=== PATIENT | male | born 1945 | race Caucasian/White ===

== ENCOUNTER 2019-06-25 07:03 | Outpatient (CLI) | payer MEDICARE ==
[2019-06-25 16:58] LABS: Hemoglobin 15.4 g/dL (14.0-18.0); Mean Corpuscular HGB CONC 34.6 g/dL (32.0-36.0); Mean Corpuscular Hemoglobin 31.8 pg (27.0-31.0); Mean Platelet Volume 7.9 fL (7.4-10.4); Platelet Count 162 thou/uL (130-400); RBC Distribution Width 12.5 % (11.5-14.5); Red Blood Cell (RBC) Count 4.84 mill/uL (4.70-6.10); White Blood Cell (WBC) Count 7.3 thou/uL (4.8-10.8)
[2019-06-25 17:20] LABS: Anion Gap 12 mmol/L (10-20); BUN (Urea Nitrogen) 19 mg/dL (8.4-25.7); Calc. Creatinine Clearance 0 mL/min (70-130); Carbon Dioxide 23 mmol/L (23-31); Chloride 107 mmol/L (98-107); Estimated GFR-MDRD 41; Glucose 100 mg/dL (83-110); Potassium 3.9 mmol/L (3.5-5.1); Sodium 138 mmol/L (136-145)
== END 2019-06-25 07:04 | disposition home or self-care (01) ==
LOC: LABBT 07:03
PROVIDERS: ATTEND Thoracic Surgery (Cardiothoracic Vascular Surgery)
DX: Z01.818 Encounter for other preprocedural examination (principal); I25.10 Atherosclerotic heart disease of native coronary artery without angina pectoris
CPT/HCPCS: 80048; 85027

== ENCOUNTER 2019-06-25 17:00 | Inpatient (IN) | payer MEDICARE ==
[2019-06-26] MEDS ORDERED: Fentanyl 100 MCG/2 ML VIAL ONE (06:31)
[2019-06-26] MEDS ORDERED: Midazolam HCl 5 mg/5 ml Vial ONE (06:31)
[2019-06-26] MEDS ORDERED: Midazolam HCl 2 mg/2 ml Vial ONE (06:31)
[2019-06-26] MEDS ORDERED: Dexmedetomidine 200 MCG/2 ML VIAL ONE (06:31)
[2019-06-26] MEDS ORDERED: Vecuronium 10 MG VIAL ONE ×2 (06:31→17:45)
[2019-06-26] MEDS ORDERED: Albumin 5% 500 ML ONE (06:32)
[2019-06-26] MEDS ORDERED: Heparin 10,000 UNITS/1 ML VIAL 30,000 UNITS in Sodium Chloride 0.9% 1,000 ML FS SCH (06:45)
[2019-06-26] MEDS ORDERED: hydrALAZINE 20 MG/ML VIAL SLOW IVP PRN (11:48)
[2019-06-26] MEDS ORDERED: Bisacodyl 10 MG SUPP PR PRN (11:48)
[2019-06-26] MEDS ORDERED: Promethazine HCl 25 MG/ML VIAL IM PRN (11:48)
[2019-06-26] MEDS ORDERED: Post-Op Insulin Drip Protocol IVPB ONE (11:48)
[2019-06-26] MEDS ORDERED: Mag-Al 1200 mg/1200 mg/30 ML UDCUP PO PRN (11:48)
[2019-06-26] MEDS ORDERED: Bisacodyl 5 MG TAB PO PRN (11:48)
[2019-06-26] MEDS ORDERED: DOPamine 400 MG/D5W 250 ML 250 ML IVPB PRN (11:48)
[2019-06-26] MEDS ORDERED: Norepinephrine 8 MG/0.9% NS 250 ML IVPB PRN (11:48)
[2019-06-26] MEDS ORDERED: niCARdipine 25 MG in Sodium Chloride 0.9% 250 ML 250 ML IVPB PRN (11:48)
[2019-06-26] MEDS ORDERED: Guaifenesin DM 100-10/5 ML UDCUP PO PRN (11:48)
[2019-06-26] MEDS ORDERED: Nitroglycerin 50 MG/250 ML BOT 250 ML IVPB PRN (11:48)
[2019-06-26] MEDS ORDERED: Hetastarch 6% 500 ML 500 ML IVPB PRN (11:48)
[2019-06-26] MEDS ORDERED: Magnesium 2 GM/50 ML 2 GM in Premix Bag 1 BAG IVPB SCH (11:48)
[2019-06-26] MEDS ORDERED: Morphine 2 MG/ML SYRINGE SLOW IVP PRN (11:48)
[2019-06-26] MEDS ORDERED: Potassium Chloride 20 MEQ/100 ML PREMIX BAG IVPB PRN (11:48)
[2019-06-26] MEDS ORDERED: Fentanyl 100 MCG/2 ML VIAL SLOW IVP PRN (11:48)
[2019-06-26] MEDS ORDERED: Dextrose 50% Abboject 50 ML SYRINGE SLOW IVP PRN (11:58)
[2019-06-26] MEDS ORDERED: HUMULIN R 100 UNITS in Sodium Chloride 0.9% 100 ML IVPB SCH (11:58)
[2019-06-26] MEDS ORDERED: Dextrose 5% in Water 1,000 ML IV PRN (11:58)
[2019-06-26] MEDS: Lactated Ringer's 1,000 ML IV SCH ×2 (12:00→23:57)
[2019-06-26 12:23] LABS: INR-International Normal Ratio 1.3; PTT 35.4 SEC (22.9-36.1); Prothrombin Time 16.5 SEC (12.0-14.7)
--- NOTE | 2019-06-26 12:26 | RAD ---
SINGLE VIEW CHEST: Date: 06/26/19 COMPARISON: None. HISTORY: Status post open heart surgery. FINDINGS: Single view of the chest shows an enlarged cardiomediastinal silhouette. The patient is status post C ABG. There is a right subclavian central venous catheter with its tip at the superior vena cava. A le ft-sided chest tube and mediastinal drain are seen. There is atelectasis in the left lung base. No pn eumothorax is seen. IMPRESSION: Appropriate position of lines and tubes status post sternotomy. POS: TPC
[2019-06-26] MEDS ORDERED: Insulin Regular 300 UNITS/3 ML VIAL ONE (12:29)
[2019-06-26] MEDS: Insulin Regular 300 UNITS/3 ML VIAL SC PRN ×2 (12:31→17:25)
[2019-06-26 12:34] LABS: Anion Gap 9 mmol/L (10-20); BUN (Urea Nitrogen) 21 mg/dL (8.4-25.7); Calc. Creatinine Clearance 73 mL/min (70-130); Calcium 9.1 mg/dL (7.8-10.44); Carbon Dioxide 25 mmol/L (23-31); Chloride 109 mmol/L (98-107); Estimated GFR-MDRD 47; Glucose 144 mg/dL (83-110); Potassium 4.2 mmol/L (3.5-5.1); Sodium 139 mmol/L (136-145)
[2019-06-26 12:37] LABS: #Eosinphils 0.1 thou/uL (0.0-0.7); #Monocytes 0.7 thou/uL (0.11-0.59); #Neutrophils 11.4 thou/uL (1.40-6.50); %Basophils 0.2 % (0.0-1.0); %Eosinophils 0.9 % (0.0-10.0); %Lymphocytes 7.2 % (21.0-51.0); %Neutrophils 86.7 % (42.0-75.0); Hemoglobin 13.8 g/dL (14.0-18.0); Mean Corpuscular HGB CONC 33.7 g/dL (32.0-36.0); Mean Corpuscular Hemoglobin 30.8 pg (27.0-31.0); Mean Corpuscular Volume 91.3 fL (78.0-98.0); Mean Platelet Volume 7.9 fL (7.4-10.4); Platelet Count 116 thou/uL (130-400); Platelet Morphology Comment Appears Decreased; RBC Distribution Width 12.6 % (11.5-14.5); RBC Morphology Normal; Red Blood Cell (RBC) Count 4.48 mill/uL (4.70-6.10); White Blood Cell (WBC) Count 13.1 thou/uL (4.8-10.8)
[2019-06-26] MEDS: Acetaminophen 1,000 MG in Premix Bag 1 BAG IVPB SCH ×3 (13:12→23:58)
[2019-06-26] MEDS: Ondansetron PF 4 MG/2 ML Vial IVP PRN (13:44)
[2019-06-26] MEDS: CEFAZOLIN 2 GM in Premix Bag 1 BAG IVPB SCH ×2 (14:01→21:40)
[2019-06-26] MEDS: HYDROcodone/Acetaminophen 5/325 mg Tablet PO PRN (15:23)
[2019-06-26] MEDS: Fentanyl 100 MCG/2 ML VIAL SLOW IVP PRN ×2 (17:21→20:39)
[2019-06-26 17:34] LABS: Hemoglobin 13.7 g/dL (14.0-18.0)
[2019-06-26] MEDS ORDERED: Ondansetron PF 4 MG/2 ML Vial ONE (17:45)
[2019-06-26] MEDS ORDERED: Heparin 5,000 UNITS/ML VIAL ONE (17:45)
[2019-06-26] MEDS ORDERED: Papaverine 60 MG/2 ML VIAL ONE (17:45)
[2019-06-26] MEDS ORDERED: Mannitol 12.5 GM/50 ML ONE (17:45)
[2019-06-26] MEDS ORDERED: Glycopyrrolate 0.2 MG/ML 5 ML SYRINGE ONE (17:45)
[2019-06-26] MEDS ORDERED: Aminocaproic Acid 5 GM/20 ML VIAL ONE (17:45)
[2019-06-26] MEDS ORDERED: PHENYLEPHRINE-NS 100 MCG/ML 10 ML SYRINGE ONE (17:45)
[2019-06-26] MEDS ORDERED: Calcium Chloride 1 GM/10 ML Abboject SYRINGE ONE (17:45)
[2019-06-26] MEDS ORDERED: Thrombin 5000 UNITS/5 ML VIAL ONE (17:45)
[2019-06-26] MEDS ORDERED: Magnesium 5 GM/10 ML VIAL ONE (17:45)
[2019-06-26] MEDS ORDERED: Nitroglycerin 50 MG/250 ML BOT ONE (17:45)
[2019-06-26] MEDS ORDERED: Protamine Sulfate 250 MG/25 ML VIAL ONE (17:45)
[2019-06-26] MEDS ORDERED: ePHEDrine 50 MG/ML VIAL ONE (17:45)
[2019-06-26] MEDS ORDERED: Dexamethasone 20 MG/5 ML VIAL ONE (17:45)
[2019-06-26] MEDS ORDERED: Ketorolac Tromethamine 30 MG/ML VIAL ONE (17:45)
[2019-06-26] MEDS ORDERED: Lidocaine 2% PF 100 mg/5 ml Syringe ONE (17:45)
[2019-06-26] MEDS ORDERED: Heparin 30,000 units/30 ml VIAL ONE (17:45)
[2019-06-26] MEDS ORDERED: Sodium Bicarb 50 MEQ/50 ML VIAL ONE (17:45)
[2019-06-26] MEDS ORDERED: Cardioplegic Soln 1,000 ML BAG ONE (17:45)
[2019-06-26 17:48] LABS: Potassium 4.2 mmol/L (3.5-5.1)
[2019-06-26] MEDS: Famotidine/PF 20 mg/2ml Vial SLOW IVP SCH (20:38)
[2019-06-26] MEDS: Atorvastatin Calcium 40 MG TAB PO SCH (20:40)
[2019-06-27] MEDS: HYDROcodone/Acetaminophen 5/325 mg Tablet PO PRN ×2 (04:03→13:27)
[2019-06-27 05:03] LABS: #Lymphocytes 0.9 thou/uL (1.20-3.40); #Monocytes 0.9 thou/uL (0.11-0.59); #Neutrophils 9.3 thou/uL (1.40-6.50); %Basophils 0.1 % (0.0-1.0); %Eosinophils 0.2 % (0.0-10.0); %Lymphocytes 8.4 % (21.0-51.0); %Monocytes 8.1 % (0.0-10.0); %Neutrophils 83.3 % (42.0-75.0); Hemoglobin 12.9 g/dL (14.0-18.0); Mean Corpuscular HGB CONC 33.8 g/dL (32.0-36.0); Mean Corpuscular Hemoglobin 31.5 pg (27.0-31.0); Mean Corpuscular Volume 93.1 fL (78.0-98.0); Mean Platelet Volume 8.8 fL (7.4-10.4); Platelet Count 110 thou/uL (130-400); RBC Distribution Width 12.6 % (11.5-14.5); White Blood Cell (WBC) Count 11.1 thou/uL (4.8-10.8)
[2019-06-27 05:19] VITALS: BMI 32.6
[2019-06-27 05:19] LABS: Anion Gap 11 mmol/L (10-20); BUN (Urea Nitrogen) 22 mg/dL (8.4-25.7); Calc. Creatinine Clearance 80 mL/min (70-130); Calcium 8.2 mg/dL (7.8-10.44); Carbon Dioxide 21 mmol/L (23-31); Chloride 109 mmol/L (98-107); Estimated GFR-MDRD 53; Glucose 119 mg/dL (83-110); Potassium 4.1 mmol/L (3.5-5.1); Sodium 137 mmol/L (136-145)
[2019-06-27] MEDS: CEFAZOLIN 2 GM in Premix Bag 1 BAG IVPB SCH (05:22)
[2019-06-27] MEDS ORDERED: Acetaminophen 325 MG TAB PO PRN (06:00)
[2019-06-27] MEDS: Ibuprofen 200 MG TAB PO SCH ×3 (07:18→18:02)
--- NOTE | 2019-06-27 08:13 | RAD ---
PORTABLE CHEST: Date: 06/27/19 HISTORY: Postop open heart surgery. COMPARISON: Prior day's study. FINDINGS: Heart size is enlarged. There are postop sternotomy changes. Right-sided subclavian line and left-barry ed chest tubes remain in place. The pulmonary vascular engorgement and parenchymal lung changes are s table as compared to the prior study. IMPRESSION: Stable exam. POS: ELIZABETH
--- NOTE | 2019-06-27 08:55 | OP ---
DATE OF PROCEDURE: 06/26/2019 PREOPERATIVE DIAGNOSIS: Coronary artery disease. PROCEDURE PERFORMED: Coronary artery bypass graft x4, ERICKSON, good quality to a 1.5 mm left anterior descending, saphenous vein, good quality to large to a 1.5 mm PDA, a 1.5 mm diagonal, left radial to a 1.5 mm obtuse marginal. [employer] C[employer]ER: Dang. ADDITIONAL FINDINGS: The patient had rather large heart, deep chest. DESCRIPTION OF PROCEDURE: After adequate anesthesia had been obtained, the patient was prepped and draped and I did a left radial artery harvest after ensuring good collateral flow while Dr. Leong did an endovascular vein harvest of the left greater saphenous vein. Simultaneously, then I performed a median sternotomy harvesting the left internal mammary artery. The patient was heparinized. Mammary divided distally and passed posterior to the thymus gland. An incision made in the pericardium to allow it to go well to the left of the midline to access the LAD, which was more lateral and posterior than normal. Aorta was cannulated and was somewhat large vessel. Right atrium was cannulated. Cardiopulmonary bypass begun. The aorta was cross clamped and after a liter of cardioplegia, the 4 distal anastomosis were completed. The cross-clamp was removed. The partial occluding clamp placed and 2 vein anastomosis were performed on the aortic root and marked with rings into the james of the diagonal vein graft was placed to the OM radial graft. The patient was weaned from cardiopulmonary bypass. Cannula was removed and aortic cannulation site secured with a 4-0 Prolene suture. Mediastinal and left pleural drains were placed following which the sternum was reapproximated with #7 interrupted wire using vancomycin paste on the sternal edges, platelet rich blood and platelet poor plasma. Subcutaneous tissue and skin were closed in layers and the patient was to be taken to the ICU in guarded condition. Job ID: [id number]
[2019-06-27] MEDS: Famotidine/PF 20 mg/2ml Vial SLOW IVP SCH ×2 (09:14→21:17)
[2019-06-27] MEDS: Aspirin 325 MG TAB PO SCH (09:14)
[2019-06-27] MEDS: Polyethylene Glycol 3350 17 GM Packet PO SCH (12:09)
[2019-06-27] MEDS: Lactated Ringer's 1,000 ML IV SCH (12:14)
[2019-06-27] MEDS ORDERED: Fentanyl 100 MCG/2 ML VIAL SLOW IVP PRN (16:56)
[2019-06-27] MEDS: Ondansetron PF 4 MG/2 ML Vial IVP PRN (17:14)
[2019-06-27] MEDS: Atorvastatin Calcium 40 MG TAB PO SCH (21:17)
[2019-06-28 04:54] LABS: Anion Gap 6 mmol/L (10-20); BUN (Urea Nitrogen) 17 mg/dL (8.4-25.7); Calc. Creatinine Clearance 75 mL/min (70-130); Calcium 7.7 mg/dL (7.8-10.44); Carbon Dioxide 28 mmol/L (23-31); Chloride 106 mmol/L (98-107); Estimated GFR-MDRD 49; Glucose 118 mg/dL (83-110); Potassium 3.2 mmol/L (3.5-5.1); Sodium 137 mmol/L (136-145)
[2019-06-28 04:56] LABS: #Eosinphils 0.2 thou/uL (0.0-0.7); #Lymphocytes 1.4 thou/uL (1.20-3.40); #Monocytes 0.9 thou/uL (0.11-0.59); #Neutrophils 6.3 thou/uL (1.40-6.50); %Basophils 0.4 % (0.0-1.0); %Eosinophils 2.3 % (0.0-10.0); %Lymphocytes 15.6 % (21.0-51.0); %Monocytes 10.3 % (0.0-10.0); %Neutrophils 71.3 % (42.0-75.0); Hemoglobin 11.9 g/dL (14.0-18.0); Mean Corpuscular HGB CONC 34.2 g/dL (32.0-36.0); Mean Corpuscular Hemoglobin 31.9 pg (27.0-31.0); Mean Corpuscular Volume 93.4 fL (78.0-98.0); Mean Platelet Volume 8.5 fL (7.4-10.4); Platelet Count 98 thou/uL (130-400); RBC Distribution Width 12.7 % (11.5-14.5); Red Blood Cell (RBC) Count 3.72 mill/uL (4.70-6.10); White Blood Cell (WBC) Count 8.9 thou/uL (4.8-10.8)
[2019-06-28] MEDS: Ibuprofen 200 MG TAB PO SCH ×4 (05:46→17:37)
[2019-06-28] MEDS ORDERED: Guaifenesin DM 100-10/5 ML UDCUP PO PRN (07:20)
[2019-06-28] MEDS ORDERED: Mineral Oil ENEMA PR PRN (07:20)
[2019-06-28] MEDS ORDERED: Bisacodyl 10 MG SUPP PR PRN (07:20)
[2019-06-28] MEDS ORDERED: Bisacodyl 5 MG TAB PO PRN (07:20)
[2019-06-28] MEDS ORDERED: Ondansetron PF 4 MG/2 ML Vial IVP PRN (07:20)
[2019-06-28] MEDS ORDERED: Nitroglycerin 0.4 MG TAB (25 Tab Bottle) SL PRN (07:20)
[2019-06-28] MEDS ORDERED: Acetaminophen 325 MG TAB PO PRN (07:20)
[2019-06-28] MEDS ORDERED: Mag-Al 1200 mg/1200 mg/30 ML UDCUP PO PRN (07:20)
[2019-06-28] MEDS: Aspirin 325 MG TAB PO SCH (08:36)
[2019-06-28] MEDS: Famotidine 20 MG TAB PO SCH ×2 (08:36→20:15)
[2019-06-28] MEDS: Furosemide 40 MG TAB PO SCH (08:36)
[2019-06-28] MEDS: Aspirin 325 mg Enteric Coated Tablet PO SCH (08:37)
[2019-06-28] MEDS: Polyethylene Glycol 3350 17 GM Packet PO SCH (08:37)
[2019-06-28] MEDS: Potassium Chloride 10 MEQ TAB PO SCH (08:37)
--- NOTE | 2019-06-28 08:40 | RAD ---
CHEST 1 VIEW: Date: 06/28/19 INDICATION: History of open heart surgery. COMPARISON: Prior study dated 06/27/19. FINDINGS: Cardiomegaly persists. Mild pulmonary vascular congestion has improved. Right subclavian central veno us catheter is unchanged. Left-sided thoracostomy tube has been removed. No pneumothorax is evident. Post CABG change is stable. Left basilar opacity and small left pleural effusion remain. IMPRESSION: 1. Improvement in the central edema pattern seen from the prior exam. 2. Removal of left side thoracostomy tube. No pneumothorax. 3. Increasing air space opacity of left lower lobe may reflect areas of subsegmental volume loss. Re commend repeat chest radiograph with improved aeration. 4. Stable right subclavian central venous catheter. POS: BH
[2019-06-28] MEDS: HYDROcodone/Acetaminophen 5/325 mg Tablet PO PRN (20:13)
[2019-06-28] MEDS: Atorvastatin Calcium 40 MG TAB PO SCH (20:15)
[2019-06-29] MEDS: Ibuprofen 200 MG TAB PO SCH ×4 (00:19→20:01)
[2019-06-29] MEDS: Aspirin 325 mg Enteric Coated Tablet PO SCH (08:47)
[2019-06-29] MEDS: HYDROcodone/Acetaminophen 5/325 mg Tablet PO PRN ×2 (08:47→21:38)
[2019-06-29] MEDS: Furosemide 40 MG TAB PO SCH (08:48)
[2019-06-29] MEDS: Polyethylene Glycol 3350 17 GM Packet PO SCH (08:48)
[2019-06-29] MEDS: Famotidine 20 MG TAB PO SCH ×2 (08:48→20:26)
[2019-06-29] MEDS: Potassium Chloride 10 MEQ TAB PO SCH (08:48)
[2019-06-29 18:33] LABS: Magnesium 1.7 mg/dL (1.6-2.6); Potassium 3.4 mmol/L (3.5-5.1)
[2019-06-29 18:41] LABS: ALT (SGPT) 14 U/L (8-55); AST (SGOT) 32 U/L (5-34); Albumin 3.3 g/dL (3.4-4.8); Alkaline Phosphatase 58 U/L (40-110); Bilirubin, Direct 0.4 mg/dL (0.1-0.3); Bilirubin, Total 0.7 mg/dL (0.2-1.2); Protein, Total 6.2 g/dL (5.8-8.1)
[2019-06-29] MEDS: Amiodarone 450 MG in Dextrose 5% in Water 250 ML IVPB SCH (18:52)
[2019-06-29] MEDS ORDERED: [UNRECOGNIZED DRUG - REMARK] FS SCH (19:15)
[2019-06-29] MEDS ORDERED: Potassium Chloride 20 MEQ TAB PO SCH (20:00)
[2019-06-29] MEDS: Atorvastatin Calcium 40 MG TAB PO SCH (20:26)
[2019-06-30] MEDS: Ibuprofen 200 MG TAB PO SCH ×4 (01:01→17:31)
[2019-06-30] MEDS: Amiodarone 450 MG in Dextrose 5% in Water 250 ML IVPB SCH (02:02)
[2019-06-30] MEDS ORDERED: Metolazone 5 MG TAB PO SCH (07:00)
[2019-06-30] MEDS: Potassium Chloride 10 MEQ TAB PO SCH (09:01)
[2019-06-30] MEDS: Aspirin 325 mg Enteric Coated Tablet PO SCH (09:29)
[2019-06-30] MEDS: Famotidine 20 MG TAB PO SCH ×2 (09:29→21:38)
[2019-06-30] MEDS: Polyethylene Glycol 3350 17 GM Packet PO SCH (09:29)
[2019-06-30] MEDS: Furosemide 40 MG TAB PO SCH (09:29)
[2019-06-30] MEDS: Amiodarone 200 MG TAB PO SCH ×2 (09:29→21:38)
--- NOTE | 2019-06-30 15:54 | CON ---
DATE OF CONSULTATION: 06/30/2019 REASON FOR CONSULTATION: Post-CABG atrial fibrillation. HISTORY OF PRESENT ILLNESS: Mr. Alejandre is a very pleasant 74-year-old white gentleman, who is a patient of Dr. Galeana, who comes to the hospital for a planned CABG. He underwent CABG x4 by Dr. Vazquez on 06/26/2019. He had a ERICKSON to the LAD, a vein graft to a large PDA, a vein graft to diagonal and left radial to an OM. He did well postoperatively. Yesterday, he developed atrial fibrillation with RVR. He was started on amiodarone drip. He converted back to sinus. He denies any chest pain, tightness, pressure, or chest soreness. He has been walking with PT. He has not had a bowel movement yet, but is passing gas. PAST MEDICAL HISTORY: 1. Hypertension. 2. Coronary artery disease. 3. Hyperlipidemia. 4. GERD. 5. Gout. 6. CKD, stage 3. 7. Anxiety and depression. OUTPATIENT MEDICATIONS: Include: 1. Valsartan. 2. Metoprolol succinate 25 mg a day. 3. Colchicine. 4. Atorvastatin 40 mg q.h.s. 5. CoQ10. 6. Sertraline. 7. Pantoprazole 40 mg q.p.m. 8. Allopurinol. 9. Aspirin 81 a day. ALLERGIES: NO KNOWN DRUG ALLERGIES. FAMILY HISTORY: Noncontributory. SOCIAL HISTORY: No tobacco or drugs. Social alcohol use. PAST SURGICAL HISTORY: 1. Had a knee surgery x3. 2. CABG as above. 3. Tonsillectomy as a kid. 4. Vasectomy. REVIEW OF SYSTEMS: A 12-point review of systems was done and was all negative unless stated in the history of present illness. PHYSICAL EXAMINATION: VITAL SIGNS: Temperature 97.3, pulse 73, respiratory rate 14, saturating 96% on room air, blood pressure 147/87. GENERAL: Awake, alert, and oriented x3. No distress. HEENT: Normocephalic, atraumatic. NECK: Supple. LUNGS: Clear. CARDIOVASCULAR: S1 and S2. No S3 or S4. No murmurs. ABDOMEN: Soft. Positive bowel sounds. EXTREMITIES: No edema. SKIN: Warm and dry. LABORATORY DATA: Laboratory work was reviewed. CBC with a white count of 8.9, hemoglobin 11, hematocrit of 34, and platelet count of 98. Coags were reviewed. Chemistries were reviewed. Potassium was 3.4 yesterday evening after replacement, it was 3.2 before that. Creatinine 1.3 and 1.4. GFR 49. TSH 1.3. Albumin of 3.3. ASSESSMENT AND PLAN: 1. Coronary artery disease. 2. Status post coronary artery bypass graft x4 as above. 3. Postoperative atrial fibrillation. 4. Hypertension. 5. Hyperlipidemia. PLAN: 1. We will do an amiodarone load. He has already converted to sinus after amiodarone drip. We will give him 400 b.i.d. for 10 days that is and then he will switch to 200 mg once a day. He will follow up with Dr. Galeana in about a month, at which point he should be able to come off the amiodarone. 2. We will restart some of his home blood pressure medications to try to control his blood pressure a little bit better, starting with beta-adithya and possibly tomorrow the ARB. 3. Continue to increase PT as tolerated. Thank you for letting us to participate in the care of your patient. We will follow. Job ID: [id number]
--- NOTE | 2019-06-30 17:10 | EKG ---
Test Reason : POST CABG Blood Pressure : / mmHG Vent. Rate : 054 BPM Atrial Rate : 054 BPM P-R Int : 172 ms QRS Dur : 088 ms QT Int : 502 ms P-R-T Axes : 024 -17 004 degrees QTc Int : 476 ms Sinus bradycardia Otherwise normal ECG When compared with ECG of 25-JUN-2019 16:37, (Unconfirmed) Minimal criteria for Anterior infarct are no longer Present T wave inversion now evident in Inferior leads QT has lengthened Confirmed by BRIANNE BAUMAN (2) on 06/30/2019 5:10:44 PM Referred By: JESUS Confirmed By:BRIANNE BAUMAN
[2019-06-30] MEDS: Atorvastatin Calcium 40 MG TAB PO SCH (21:38)
[2019-07-01] MEDS: Ibuprofen 200 MG TAB PO SCH ×3 (01:11→13:18)
[2019-07-01] MEDS: HYDROcodone/Acetaminophen 5/325 mg Tablet PO PRN (03:26)
[2019-07-01] MEDS ORDERED: Valsartan 80 MG TAB PO SCH (09:00)
[2019-07-01] MEDS: Aspirin 325 mg Enteric Coated Tablet PO SCH (09:32)
[2019-07-01] MEDS: Furosemide 40 MG TAB PO SCH (09:32)
[2019-07-01] MEDS: Potassium Chloride 10 MEQ TAB PO SCH (09:32)
[2019-07-01] MEDS: Famotidine 20 MG TAB PO SCH (09:32)
[2019-07-01] MEDS: Amiodarone 200 MG TAB PO SCH (09:32)
[2019-07-01] MEDS: Polyethylene Glycol 3350 17 GM Packet PO SCH (09:33)
[2019-07-01 12:41] VITALS: TEMP 97.9
[2019-07-01 12:45] VITALS: BP 143/88
--- NOTE | 2019-07-01 15:08 | DIS ---
DATE OF ADMISSION: 06/26/2019 DATE OF DISCHARGE: 07/01/2019 This is a 74-year-old gentleman admitted for coronary artery bypass grafting, which was carried out, giving a ERICKSON to an LAD, a radial to an OM, and saphenous vein graft to a diagonal and right PDA on the day of admission. He did have some transient atrial fibrillation on 06/29 in the evening, treated with amiodarone without recurrence for greater than 24 hours prior to discharge. Blood pressure was beginning to elevate and he will resume his valsartan 320 half tablet daily. Otherwise, he will resume all of his medications except for his sertraline, which I am putting on hold given his early dementia and some mild confusion in the evenings. I have gone over the discharge instructions in great detail with the patient and with the most emphasis on the need to get up and walk multiple times a day. He can take Motrin, Tylenol, or Aleve at home and I have not given him any pain medications. Job ID: [id number]
== END 2019-07-01 13:17 | disposition home or self-care (01) | DRG 236 ==
LOC: SURG A 06-26 05:46 → CCU 06-26 10:53 → 2NO 06-28 09:30
PROVIDERS: ADMIT Thoracic Surgery (Cardiothoracic Vascular Surgery); ATTEND Thoracic Surgery (Cardiothoracic Vascular Surgery)
PROC: 02100Z9 Bypass Coronary Artery, One Artery from Left Internal Mammary, Open Approach (ICD-10-PCS; principal; 2019-06-26)
PROC: 021109W Bypass Coronary Artery, Two Arteries from Aorta with Autologous Venous Tissue, Open Approach (ICD-10-PCS; 2019-06-26)
PROC: 02100AW Bypass Coronary Artery, One Artery from Aorta with Autologous Arterial Tissue, Open Approach (ICD-10-PCS; 2019-06-26)
PROC: 03BC4ZZ Excision of Left Radial Artery, Percutaneous Endoscopic Approach (ICD-10-PCS; 2019-06-26)
PROC: 06BQ4ZZ Excision of Left Saphenous Vein, Percutaneous Endoscopic Approach (ICD-10-PCS; 2019-06-26)
PROC: 5A1221Z Performance of Cardiac Output, Continuous (ICD-10-PCS; 2019-06-26)
DX: I25.118 Atherosclerotic heart disease of native coronary artery with other forms of angina pectoris (principal); I12.9 Hypertensive chronic kidney disease with stage 1 through stage 4 chronic kidney disease, or unspecified chronic kidney disease; N18.3 Chronic kidney disease, stage 3 (moderate); E78.2 Mixed hyperlipidemia; M10.9 Gout, unspecified; F41.9 Anxiety disorder, unspecified; F32.9 Major depressive disorder, single episode, unspecified; F03.90 Unspecified dementia, unspecified severity, without behavioral disturbance, psychotic disturbance, mood disturbance, and anxiety; I48.91 Unspecified atrial fibrillation; Z79.899 Other long term (current) drug therapy; Z79.82 Long term (current) use of aspirin
CPT/HCPCS: 36415; 36416; 36430; 71045; 80048; 80076; 83735; 84132; 84443; 85025; 85027; 85610; 85730; 86850; 86900; 86901; 93005; 93010; 93798; J0131; J0282; J0690; J1100; J1642; J1644; J1815; J1885; J2001; J2150; J2250; J2405; J2440; J2720; J3010; J3370; J3475; J3490; J7050; J7070; P9045; S0017; S0028

== ENCOUNTER 2021-05-17 09:45 | Outpatient (CLI) | payer MEDICARE ==
[~2021-05-17 09:45] MED LIST: Iopamidol 370 76% 100 ML VIAL ONE; Iopamidol 370 76% 50 ML VIAL FS ONE
== END 2021-05-17 09:46 | disposition home or self-care (01) ==
LOC: CT 09:45
PROVIDERS: ATTEND Specialist
DX: K80.20 Calculus of gallbladder without cholecystitis without obstruction (principal); R91.8 Other nonspecific abnormal finding of lung field; J84.10 Pulmonary fibrosis, unspecified; N28.1 Cyst of kidney, acquired; K44.9 Diaphragmatic hernia without obstruction or gangrene; K42.9 Umbilical hernia without obstruction or gangrene; I77.811 Abdominal aortic ectasia; K76.9 Liver disease, unspecified
CPT/HCPCS: 74177; 82565; Q9967

== ENCOUNTER 2021-06-10 12:04 | Outpatient (CLI) | payer MEDICARE ==
[2021-06-10 12:50] LABS: #Eosinphils 0.1 10x3/uL (0.0-0.5); #Monocytes 0.8 10x3/uL (0.0-1.1); #Neutrophils 4.7 10x3/uL (1.5-8.4); %Basophils 0.4 % (0.0-2.0); %Eosinophils 1.4 % (0.0-6.0); %Lymphocytes 19.1 % (18.0-47.0); %Neutrophils 67.8 % (40.0-75.0); Hemoglobin 14.7 g/dL (13.5-17.5); Mean Corpuscular HGB CONC 33.5 g/dL (32.0-36.0); Mean Corpuscular Hemoglobin 30.1 pg (27.0-33.0); Mean Corpuscular Volume 89.8 fl (81.2-95.1); Mean Platelet Volume 10.1 fl (7.4-10.4); Platelet Count 156 10x3/uL (150-450); RBC Distribution Width 13.3 % (11.5-14.5); Red Blood Cell (RBC) Count 4.89 10x6/uL (4.32-5.72)
[2021-06-10 13:10] LABS: ALT (SGPT) 13 U/L (8-55); AST (SGOT) 22 U/L (5-34); Albumin 3.8 g/dL (3.4-4.8); Alkaline Phosphatase 54 U/L (40-110); Anion Gap 13 mmol/L (10-20); BUN (Urea Nitrogen) 25 mg/dL (8.4-25.7); Bilirubin, Total 0.7 mg/dL (0.2-1.2); Calc. Creatinine Clearance 0 mL/min (70-130); Calcium 9.4 mg/dL (7.8-10.44); Carbon Dioxide 24 mmol/L (23-31); Chloride 107 mmol/L (98-107); Globulin 3.1 g/dL (2.4-3.5); Glucose 102 mg/dL (83-110); Potassium 4.2 mmol/L (3.5-5.1); Protein, Total 6.9 g/dL (5.8-8.1); Sodium 140 mmol/L (136-145)
[2021-06-10 23:36] LABS: SARS-CoV-2 PCR by NAA Not Detected (NotDetected)
== END 2021-06-10 12:05 | disposition home or self-care (01) ==
LOC: LABBT 12:04
PROVIDERS: ATTEND Specialist
DX: Z01.818 Encounter for other preprocedural examination (principal); K80.20 Calculus of gallbladder without cholecystitis without obstruction; K42.9 Umbilical hernia without obstruction or gangrene; Z20.822 Contact with and (suspected) exposure to COVID-19
CPT/HCPCS: 80053; 85025; 93005; U0003; U0005; 93010

== ENCOUNTER 2021-06-15 07:53 | Day surgery (SDC) | payer MEDICARE ==
[2021-06-14 11:46] VITALS: BMI 28.2
[2021-06-15] MEDS ORDERED: Ketorolac Tromethamine 30 MG/ML VIAL ONE (08:34)
[2021-06-15] MEDS ORDERED: Acetaminophen 500 MG TAB ONE (08:34)
[2021-06-15] MEDS ORDERED: Lidocaine 1% w/Epinephrine 1:100K 30 ML VIAL ONE (12:26)
[2021-06-15] MEDS ORDERED: Bupivacaine 0.25% HCL 30 ML VIAL ONE (12:26)
[2021-06-15] MEDS ORDERED: Fentanyl 100 MCG/2 ML VIAL ONE ×3 (12:35→14:59)
[2021-06-15] MEDS ORDERED: ePHEDrine 50 MG/ML VIAL ONE (12:45)
[2021-06-15] MEDS ORDERED: Ondansetron PF 4 MG/2 ML Vial ONE (12:45)
[2021-06-15] MEDS ORDERED: Dexamethasone 20 MG/5 ML VIAL ONE (12:45)
[2021-06-15] MEDS ORDERED: Rocuronium Bromide 10 MG/ML (10ML VIAL) ONE (12:45)
[2021-06-15] MEDS ORDERED: Lidocaine 1% PF 5 ML VIAL ONE (12:45)
[2021-06-15] MEDS ORDERED: PROPOFOL 200 MG/20 ML VIAL ONE (12:45)
[2021-06-15] MEDS ORDERED: Glycopyrrolate 0.2 MG/ML 5 ML SYRINGE ONE (12:45)
[2021-06-15] MEDS ORDERED: hydrALAZINE 20 MG/ML VIAL ONE (13:25)
[2021-06-15] MEDS ORDERED: Promethazine HCl 25 MG/ML VIAL ONE (14:59)
[2021-06-15] MEDS ORDERED: Morphine 2 MG/ML VIAL ONE (16:31)
== END 2021-06-15 18:24 | disposition home or self-care (01) ==
LOC: SDC 07:53
PROVIDERS: ATTEND Specialist
PROC: 0FT44ZZ Resection of Gallbladder, Percutaneous Endoscopic Approach (ICD-10-PCS; principal; 2021-06-15)
PROC: 0WQF0ZZ Repair Abdominal Wall, Open Approach (ICD-10-PCS; 2021-06-15)
DX: K80.10 Calculus of gallbladder with chronic cholecystitis without obstruction (principal); K42.9 Umbilical hernia without obstruction or gangrene; K44.9 Diaphragmatic hernia without obstruction or gangrene; K66.0 Peritoneal adhesions (postprocedural) (postinfection); E78.00 Pure hypercholesterolemia, unspecified; M10.9 Gout, unspecified; I11.9 Hypertensive heart disease without heart failure; Z79.82 Long term (current) use of aspirin; Z79.899 Other long term (current) drug therapy; Z95.1 Presence of aortocoronary bypass graft
CPT/HCPCS: 47562; 49585; J2270; 88304; J0360; J0690; J1100; J1885; J2405; J2550; J2704; J3010; J3490; S0020